=== PATIENT | female | born 1950 ===

== ENCOUNTER 2024-08-29 07:46 | Outpatient (CLI) | payer MEDICARE, SELFPAY ==
--- NOTE | 2024-09-23 19:14 | WPDHOMESLEEP ---
Sleep Study - Home Unattended Ordering Provider: ALON,BUNNY Cox Interpreting Provider: Jimena Rick, Height: 1.65 m Weight: 69.853 kg Body Mass Index: 25.6 Neck Circumference (inches): 15 [place]: 9 Assessment and Plan Data The data obtained during this sleep study is adequate for interpretation. Certification This sleep study has been reviewed by a board certified sleep medicine physician.
[2024-09-23 19:17] VITALS: BMI 25.6
--- NOTE | 2024-09-23 19:17 | P.SLEEP_ITS ---
Sleep Study Date of Study: 08/29/24 Ordering Provider: ALON,BUNNY Cox Interpreting Physician: Jimena Rick DO Sleep Study Type: Polysomnogram Height: 1.65 m Weight: 69.853 kg Body Mass Index: 25.6 Neck Circumference (inches): 15 [place]: 9 Reason for Sleep Study Previously diagnosed sleep apnea. The patient's CPAP stopped working in May 2024. Sleep History The patient is a 74-year-old female that had a sleep study ordered by her ENT physician to requalify for CPAP. The patient was previously diagnosed with sleep apnea and was on CPAP until her machine broke in May 2024. The patient occasionally awakens at night with coughing. She rarely snores and is rarely loud enough that others complain. She denies having trouble sleeping when she has a cold. She occasionally wakes up gasping for air throughout the night. She occasionally has breathing problems at night observed by herself or others. She denies sweating excessively at night. She occasionally has heart palpitations or irregular heartbeats during the night. She frequently falls asleep during the day but never while driving. She denies sleep paralysis, cataplexy and hypnagogic / hypnopompic hallucinations. She denies having trouble going to sleep. She denies having nightmares. She occasionally remembers her dreams. She occasionally has thoughts racing through her mind. She occasionally feels sad or depressed. She denies having anxiety. She occasionally has muscular tension. She denies noticing parts of her body jerk. She denies kicking during the night. She denies having crawling and aching feel ings in her legs but occasionally has leg pain during the night. She denies grinding her teeth during sleep and denies awakening with morning jaw pain. She is frequently bothered by pain during the day and frequently awakened by pain during the night. She frequently wakes up feeling stiff in the morning. She frequently wakes up with sore or achy muscles. She frequently wakes up with pain in the neck, spine and other joints. She goes to bed at 3:00 a.m. on both weekdays and weekends. It takes her 1 hour to fall asleep. She wakes up occasionally throughout the night to urinate and it takes 30 minutes to fall back asleep. She wakes up at 9:30 a.m. on weekdays and at 10:00 a.m. on the weekends. She typically gets 5 hours of sleep per night. She does not stay in bed after waking up in the morning. She currently lives alone. She denies consuming any caffeinated beverages within 2 hours of bedtime. She denies engaging in physical exercise before bedtime. She will watch television before falling asleep. She will take naps in the afternoon or the evening and they are refreshing. She consumes 12 oz of caffeinated beverage per day. Sleep Procedure A full night polysomnogram using the [employer] multi-channel system recorded the standard physiologic parameters including EEG, EOG, submentalis EMG, anterior tibialis EMG, EKG, body position, nasal and oral airflow using nasal pressure sensor and thermistor.? Respiratory parameters of chest and abdominal movements were recorded with Respiratory Inductance Plethysmography belts. Oxygen saturation was recorded by pulse oximetry. Video monitoring was also performed. Sleep stages, periodic limb movements, and EEG arousals were scored in 30 second epochs according to the criteria of the AASM Scoring Manual. The Apnea-Hypopnea Index was calculated using [facility] guidelines for definition of hypopnea with 4% O2 desaturations while scoring respiratory events. Sleep Architecture The total recording time was 399.8 minutes.? The total sleep time was 365.0 minutes. Sleep latency was 18.8 minutes. REM latency was 52.0 minutes. Sleep efficiency was 91.3%. The patient had 12 awakenings for an awakening index of 2.0. Wake after sleep onset time was 16.0 minutes. The patient spent 49.5 minutes, 13.6% of total sleep time in Stage N1. The patient spent 268.5 minutes, 73.6% in Stage N2. The patient spent 2.5 minutes, 0.7% in Stage N3. The patient spent 44.5 minutes, 12.2% in Stage REM sleep. Respiratory Analysis The patient had 22 hypopneas, 2 obstructive apneas, 2 mixed apneas, and 2 central apneas for an overall Apnea Hypopnea Index of 4.6. The REM Apnea Hypopnea Index was 9.4. The NREM Apnea Hypopnea Index was 3.9. The patient had a Central Apnea Hypopnea Index of 0.3. There were 2 Respiratory Effort Related Arousals resulting in a RERA index of 0.3 events per hour. The Respiratory Disturbance Index is 5.1 events per hour. There was no evidence of Leon-Ledbetter Respirations. Arousals There were 104 total arousals for an arousal index of 17.1. There were 57 spontaneous arousals for an index of 9.4. There were 16 arousals due to respiratory events for an index of 2.6. There were no arousals due to periodic limb movements for an index of 0.? There were 22 arousals due to isolated limb movements for an index of 3.6. Periodic Limb Movements The patient had 27 isolated limb movements with an index of 4.4. The patient had 0 periodic limb movements with an index of 0. Patient had a total of 27 limb movements with a total limb movement index of 4.4. Oximetry Data The patient had an average oxygen saturation of 96.3% in sleep with a minimum oxygen saturation of 85.0% and a maximum oxygen saturation of 99.0%. The patient had 28 oxygen desaturations that were 4% or greater resulting in an Oxygen Desaturation Index of 4.6.? The patient spent 0.3 minutes, 0.1% of total sleep time with an oxygen saturation below 88%. Snoring Profile Mild to moderate snoring was present throughout the study. Cardiac Profile The EKG showed normal sinus rhythm. No arrhythmias or PVCs were seen.?The patient had an average pulse rate of 56.1 bpm with a minimum pulse of rate of 46.0 bpm and a maximum pulse rate of 97.0 bpm.? EEG Profile No signs of seizure activity seen. Assessment and Plan Assessment and Plan (1) Snoring: Code(s): R06.83 - Snoring Status: Acute Assessment and Plan: The patient had an overall AHI of 4.6 with desaturation down to 85%. This is not consistent with sleep disordered breathing. Unfortunately the patient does not qualify for treatment unless her AHI is greater than 5. I recommend that the patient repeat the polysomnogram at a later time if convinced she still has sleep apnea. Not all nights of sleep are equal so she may qualify for treatment on a different night. Data The data obtained during this sleep study is adequate for interpretation. Certification This sleep study has been reviewed by a board certified sleep medicine physician.
== END 2024-08-30 07:39 | disposition home or self-care (01) ==
LOC: ANHCSM 07:47
PROVIDERS: Visit Provider Physician Assistant
DX: G47.33 Obstructive sleep apnea (adult) (pediatric) (principal); R06.83 Snoring
CPT/HCPCS: 95810